=== PATIENT | male | born 1980 | race African-American/Black ===

== ENCOUNTER 2019-01-05 10:04 | Emergency (ER) | payer BC, OTHER ==
[~2019-01-05] VITALS: Ht 193 cm; Wt 100.0 kg
[2019-01-05] MEDS ORDERED: HYDROCODONE/ACETAMINOPHEN 5/325MG TABLET PO ONE (14:30)
[2019-01-05] MEDS ORDERED: TETANUS, DIPHTHERIA, PERTUSSIS VAC/PF 0.5ML (>7YR OLD) IM ONE (14:30)
[2019-01-05] MEDS ORDERED: CEPHALEXIN 250MG CAPSULE PO ONE (15:30)
[2019-01-05 16:23] VITALS: BP 118/85
== END 2019-01-05 17:29 | disposition home or self-care (01) ==
LOC: ER 10:04
DX: S61.432A Puncture wound without foreign body of left hand, initial encounter (principal); W29.8XXA Contact with other powered hand tools and household machinery, initial encounter; Y93.E9 Activity, other interior property and clothing maintenance; Y92.89 Other specified places as the place of occurrence of the external cause; Z23 Encounter for immunization
CPT/HCPCS: 29125; 73130; 90471; 90715; 99283